=== PATIENT | male | born 1950 | race Caucasian/White ===

== ENCOUNTER 2018-01-07 05:43 | Inpatient (IN) | payer OTHER ==
[~2018-01-07] VITALS: Ht 180.3 cm; Wt 114.0 kg
[2018-01-07] MEDS ORDERED: THROMBIN 5,000 UNIT VIAL TP ONE (06:54)
[2018-01-07] MEDS ORDERED: LIDOCAINE/PF 0.5% ,50ML ONE (06:54)
[2018-01-07] MEDS ORDERED: BUPIVACAINE/PF 0.25% ONE (06:54)
[2018-01-07] MEDS ORDERED: VANCOMYCIN 1,000 MG ONE (06:55)
[2018-01-07] MEDS ORDERED: EPINEPHRINE 1 MG/ML, 1ML ONE (06:55)
[2018-01-07 06:56] VITALS: BP 118/82
[2018-01-07] MEDS ORDERED: REMIFENTANIL 2 MG ONE (07:01)
[2018-01-07] MEDS ORDERED: PROPOFOL 10 MG/ML, 20ML ONE (07:02)
[2018-01-07] MEDS ORDERED: ROCURONIUM 10MG/ML,5ML ONE ×2 (07:02→08:40)
[2018-01-07] MEDS ORDERED: LIDOCAINE-MPF 2% ,5ML ONE (07:02)
[2018-01-07] MEDS ORDERED: SODIUM CHLORIDE 0.9% PF 10ML ONE (07:05)
[2018-01-07] MEDS ORDERED: SERT50TA PO (07:11)
[2018-01-07] MEDS ORDERED: ASPI-496 PO (07:11)
[2018-01-07] MEDS ORDERED: DEXAMETHASONE 4 MG/ML, 1ML ONE ×2 (08:12)
[2018-01-07] MEDS ORDERED: PHENYLEPHRINE 10 MG/ML ONE (08:19)
[2018-01-07] MEDS ORDERED: LACTATED RINGERS 1,000 ML IV SCH (08:59)
[2018-01-07] MEDS ORDERED: ONDANSETRON 2MG/ML, 2ML IVPush PRN (09:30)
[2018-01-07] MEDS ORDERED: OXYcodone 5 MG/5 ML ORAL.SOL UDC PO PRN (09:30)
[2018-01-07] MEDS ORDERED: morphine SULFATE 10 MG/ML, 1ML IV PRN ×2 (09:30→14:00)
[2018-01-07] MEDS ORDERED: HYDROcodone/APAP 7.5-325MG/15ML UDC PO PRN (09:30)
[2018-01-07] MEDS ORDERED: MEPERIDINE/PF 25MG/0.5ML IVPush PRN (09:30)
[2018-01-07] MEDS ORDERED: ACETAMINOPHEN 325 MG TABLET PO PRN (09:30)
[2018-01-07] MEDS ORDERED: FENTANYL PF 100 MCG/2ML IV PRN (09:30)
[2018-01-07] MEDS ORDERED: ONDANSETRON 2MG/ML, 2ML ONE (10:39)
[2018-01-07] MEDS ORDERED: FENTANYL PF 100 MCG/2ML ONE (11:04)
[2018-01-07] MEDS ORDERED: GLYCOPYRROLATE 0.2MG/1ML, 5ML ONE (11:12)
[2018-01-07] MEDS ORDERED: NEOSTIGMINE 1 MG/ML, 10ML ONE (11:12)
[2018-01-07] MEDS ORDERED: ACETAMINOPHEN 650 MG/20.3 ML UDC ONE (11:48)
[2018-01-07] MEDS ORDERED: morphine SULFATE 10 MG/ML, 1ML ONE (11:48)
[2018-01-07] MEDS ORDERED: OXYcodone 5 MG/5 ML ORAL.SOL UDC ONE (11:48)
[2018-01-07] MEDS ORDERED: MEPERIDINE/PF 25MG/0.5ML ONE (11:48)
[2018-01-07 13:23] VITALS: BP 97/66
[2018-01-07] MEDS ORDERED: HYDROcodone/APAP 5/325 TABLET PO PRN (14:00)
[2018-01-07] MEDS: D5%-0.9% NACL+KCL 20MEQ 1,000 ML IV SCH (14:00)
[2018-01-07] MEDS ORDERED: PROMETHAZINE 25 MG/ML, 1ML IM PRN (14:00)
[2018-01-07] MEDS ORDERED: BISACODYL 10 MG SUPP PR PRN (14:00)
[2018-01-07] MEDS ORDERED: ONDANSETRON 2MG/ML, 2ML IV PRN (14:00)
[2018-01-07] MEDS ORDERED: METHOCARBAMOL 1,000 MG in DEXTROSE 5% 100 ML IV ONE (14:00)
[2018-01-07] MEDS ORDERED: MAGNESIUM HYDROXIDE 8%, 30ML UDC PO PRN (14:00)
[2018-01-07] MEDS ORDERED: LABETALOL 5MG/ML, 20ML IV PRN (14:00)
[2018-01-07] MEDS: CEFAZOLIN 2,000 MG in DEXTROSE 5% 50 ML IV SCH (16:12)
[2018-01-07 19:36] VITALS: BP 95/61
[2018-01-07] MEDS: HYDROcodone/APAP 10/325 MG TABLET PO PRN (21:07)
[2018-01-07 23:12] VITALS: BP 92/59
[2018-01-07] MEDS: METHOCARBAMOL 750 MG in DEXTROSE 5% 100 ML IV SCH (23:18)
[2018-01-08] MEDS: CEFAZOLIN 2,000 MG in DEXTROSE 5% 50 ML IV SCH ×3 (00:58→16:42)
[2018-01-08] MEDS: HYDROcodone/APAP 10/325 MG TABLET PO PRN ×2 (01:28→08:07)
[2018-01-08 03:41] VITALS: BP 94/62
[2018-01-08 05:18] LABS: BASOPHILS # (AUTO) 0.02 x10^3/uL (0-0.1); BASOPHILS % (AUTO) 0 % (0-1); EOSINOPHILS % (AUTO) 0 % (1-7); LYMPHOCYTES # (AUTO) 1.09 x10^3/uL (1-3.4); LYMPHOCYTES % (AUTO) 8 % (22-44); MD NO; MEAN CORPUSCULAR HEMOGLOBIN 32.5 pg (27.5-34.5); MEAN CORPUSCULAR HGB CONC 34.3 g/dL (33.2-36.2); MEAN CORPUSCULAR VOLUME 94.9 fL (81-97); MEAN PLATELET VOLUME 8.7 fL (7.4-10.4); MONOCYTES # (AUTO) 0.98 x10^3/uL (0.2-0.8); MONOCYTES % (AUTO) 8 % (2-9); NEUTROPHILS # (AUTO) 10.81 x10^3/uL (1.8-6.8); NEUTROPHILS % (AUTO) 84 % (42-75); PLATELET COUNT 155 x10^3/uL (130-400); RED BLOOD COUNT 4.46 x10^6/uL (4.38-5.82); RED CELL DISTRIBUTION WIDTH 13.8 % (9.4-14.8)
[2018-01-08 05:27] LABS: ANION GAP 8 mmol/L (5-15); CHLORIDE 107 mmol/L (98-107)
[2018-01-08 05:29] LABS: CREATININE 1.03 mg/dL (0.7-1.3)
[2018-01-08] MEDS: D5%-0.9% NACL+KCL 20MEQ 1,000 ML IV SCH ×2 (07:05)
[2018-01-08] MEDS: METHOCARBAMOL 750 MG in DEXTROSE 5% 100 ML IV SCH ×3 (07:06→23:02)
[2018-01-08 07:45] VITALS: BP 92/64
[2018-01-08] MEDS: SENNA/DOCUSATE TABLET PO SCH (08:06)
[2018-01-08] MEDS: SERTRALINE 50MG TABLET PO SCH (08:07)
[2018-01-08] MEDS ORDERED: SODIUM CHLORIDE 0.9% 500 ML IV ONE (13:06)
[2018-01-08 13:08] VITALS: BP 94/61
[2018-01-08] MEDS: MAGNESIUM HYDROXIDE 8%, 30ML UDC PO SCH (13:16)
[2018-01-08] MEDS ORDERED: OXYcodone IR 5MG TABLET PO PRN (13:30)
[2018-01-08] MEDS ORDERED: NS + 20MEQ KCL 1,000 ML IV SCH (14:00)
[2018-01-08 15:18] VITALS: BP 95/69
[2018-01-08 19:15] VITALS: BP_SYST 91; BP_SYST 94; BP_DIAS 55; BP_DIAS 56; BP_DIAS 71
[2018-01-08] MEDS: OXYcodone IR 5MG TABLET PO PRN (20:19)
[2018-01-08 23:05] VITALS: BP 91/59
[2018-01-09] MEDS: CEFAZOLIN 2,000 MG in DEXTROSE 5% 50 ML IV SCH ×2 (00:12→08:14)
[2018-01-09] MEDS: OXYcodone IR 5MG TABLET PO PRN ×3 (00:50→13:04)
[2018-01-09 03:22] VITALS: BP 90/59
[2018-01-09 05:13] LABS: BASOPHILS # (AUTO) 0.03 x10^3/uL (0-0.1); BASOPHILS % (AUTO) 0 % (0-1); EOSINOPHILS # (AUTO) 0.06 x10^3/uL (0-0.4); EOSINOPHILS % (AUTO) 1 % (1-7); LYMPHOCYTES # (AUTO) 2.42 x10^3/uL (1-3.4); LYMPHOCYTES % (AUTO) 23 % (22-44); MD NO; MEAN CORPUSCULAR HEMOGLOBIN 32.2 pg (27.5-34.5); MEAN CORPUSCULAR HGB CONC 33.9 g/dL (33.2-36.2); MEAN CORPUSCULAR VOLUME 95.2 fL (81-97); MEAN PLATELET VOLUME 8.4 fL (7.4-10.4); MONOCYTES # (AUTO) 1.12 x10^3/uL (0.2-0.8); MONOCYTES % (AUTO) 11 % (2-9); NEUTROPHILS # (AUTO) 6.99 x10^3/uL (1.8-6.8); NEUTROPHILS % (AUTO) 66 % (42-75); PLATELET COUNT 149 x10^3/uL (130-400); RED BLOOD COUNT 4.22 x10^6/uL (4.38-5.82); RED CELL DISTRIBUTION WIDTH 13.6 % (9.4-14.8)
[2018-01-09 05:18] LABS: ANION GAP 4 mmol/L (5-15); CHLORIDE 106 mmol/L (98-107)
[2018-01-09 05:20] LABS: CREATININE 1.09 mg/dL (0.7-1.3)
[2018-01-09] MEDS: METHOCARBAMOL 750 MG in DEXTROSE 5% 100 ML IV SCH (06:33)
[2018-01-09 07:52] VITALS: BP 93/63
[2018-01-09] MEDS: SENNA/DOCUSATE TABLET PO SCH (08:15)
[2018-01-09] MEDS: MAGNESIUM HYDROXIDE 8%, 30ML UDC PO SCH (08:15)
[2018-01-09] MEDS: SERTRALINE 50MG TABLET PO SCH (08:15)
[2018-01-09] MEDS ORDERED: TAMSULOSIN 0.4 MG CAP.ER.24H PO SCH (11:00)
[2018-01-09 12:00] VITALS: BP 114/76
[2018-01-09 12:04] VITALS: BP 118/78
[2018-01-09 12:08] VITALS: BP 115/81
[2018-01-09] MEDS ORDERED: PNEUMOC 13-VALENT VACC, 0.5 ML IM-VACC ONE (12:30)
[2018-01-09] MEDS ORDERED: OXYC5TAB3 PO (13:11)
[2018-01-09] MEDS ORDERED: CEPH-368 PO (13:12)
[2018-01-09] MEDS ORDERED: TAMS-11 PO (13:13)
[2018-01-09] MEDS ORDERED: METHOCARBAMOL 750 MG TABLET PO SCH (22:00)
== END 2018-01-09 13:55 | disposition home or self-care (01) | DRG 455 ==
LOC: ORIP 05:43 → 4NOR 13:29 → DCLOUNGE 01-09 13:48
PROVIDERS: ADMIT Orthopaedic Surgery Orthopaedic Surgery of the Spine; ATTEND Orthopaedic Surgery Orthopaedic Surgery of the Spine
PROC: 01NB0ZZ Release Lumbar Nerve, Open Approach (ICD-10-PCS; 2018-01-07)
PROC: 0SG3071 Fusion of Lumbosacral Joint with Autologous Tissue Substitute, Posterior Approach, Posterior Column, Open Approach (ICD-10-PCS; 2018-01-07)
PROC: 0SG30AJ Fusion of Lumbosacral Joint with Interbody Fusion Device, Posterior Approach, Anterior Column, Open Approach (ICD-10-PCS; 2018-01-07)
PROC: 0ST20ZZ Resection of Lumbar Vertebral Disc, Open Approach (ICD-10-PCS; 2018-01-07)
PROC: 07DS3ZZ Extraction of Vertebral Bone Marrow, Percutaneous Approach (ICD-10-PCS; 2018-01-07)
PROC: 0SG30AJ Fusion of Lumbosacral Joint with Interbody Fusion Device, Posterior Approach, Anterior Column, Open Approach (ICD-10-PCS; principal; 2018-01-07 07:30)
DX: M48.07 Spinal stenosis, lumbosacral region (principal); I95.9 Hypotension, unspecified; G89.18 Other acute postprocedural pain; M43.17 Spondylolisthesis, lumbosacral region; N40.1 Benign prostatic hyperplasia with lower urinary tract symptoms; R33.8 Other retention of urine; M54.17 Radiculopathy, lumbosacral region; Z23 Encounter for immunization
CPT/HCPCS: 36415; 72100; 80048; 85025; C1713; C1776; J0171; J0690; J1100; J2001; J2175; J2270; J2405; J2704; J2710; J3010; J3370; J3480; J3490; C1762; G0009; J2370; J2800; J7040